=== PATIENT | female | born 1955 | race African-American/Black ===

== ENCOUNTER 2017-10-07 09:36 | Outpatient (CLI) | payer BC | END 2017-10-07 09:37 | disposition home or self-care (01) | LOC: BICMAMMO 09:36 | PROVIDERS: ATTEND Obstetrics & Gynecology | DX: Z12.31 Encounter for screening mammogram for malignant neoplasm of breast (principal) | CPT/HCPCS: 77067; G0202 ==

== ENCOUNTER 2018-10-10 10:22 | Outpatient (CLI) | payer OTHER | END 2018-10-10 10:23 | disposition home or self-care (01) | LOC: BICMAMMO 10:22 | PROVIDERS: ATTEND Obstetrics & Gynecology | DX: Z12.31 Encounter for screening mammogram for malignant neoplasm of breast (principal) | CPT/HCPCS: 77063; 77067 ==

== ENCOUNTER 2019-10-11 13:22 | Outpatient (CLI) | payer OTHER ==
--- NOTE | 2019-10-11 14:23 | MMO ---
Bilateral MAMMO Bilat Screen [facility]. CLINICAL HISTORY: Patient is 64 years old and is seen for screening. The patient has no family history of breast cancer. The patient has no personal history of cancer. VIEWS: The views performed were: bilateral craniocaudal with tomosynthesis and bilateral mediolateral oblique with tomosynthesis. FILMS COMPARED: The present examination has been compared to prior imaging studies performed at [facility] on 10/07/2017 and 10/10/2018, and at [facility] on 09/23/2015 and 09/29/2016. This study has been interpreted with the assistance of computer-aided detection. MAMMOGRAM FINDINGS: There are scattered fibroglandular densities. There are no suspicious masses, suspicious calcifications, or new areas of architectural distortion. IMPRESSION: THERE IS NO MAMMOGRAPHIC EVIDENCE OF MALIGNANCY. A ROUTINE FOLLOW-UP MAMMOGRAM IN 1 YEAR IS RECOMMENDED. THE RESULTS OF THIS EXAM WERE SENT TO THE PATIENT. ACR BI-RADS Category 1 - Negative MAMMOGRAPHY NOTE: 1. A negative mammogram report should not delay a biopsy if a dominant of clinically suspicious mass is present. 2. Approximately 10% to 15% of breast cancers are not detected by mammography. 3. Adenosis and dense breasts may obscure an underlying neoplasm. Reported by: KRYSTIN MERCER MD Electonically Signed: [id number]
== END 2019-10-11 13:23 | disposition home or self-care (01) ==
LOC: BICMAMMO 13:22
PROVIDERS: ATTEND Obstetrics & Gynecology
DX: Z12.31 Encounter for screening mammogram for malignant neoplasm of breast (principal)
CPT/HCPCS: 77063; 77067

== ENCOUNTER 2019-10-31 14:56 | Inpatient (IN) | payer OTHER ==
[~2019-10-31 14:56] MED LIST: Iopamidol-370 76% 500 ML 1 ML ONE
[2019-10-31 15:57] LABS: #Eosinphils 0.2 thou/uL (0.0-0.7); #Monocytes 0.5 thou/uL (0.11-0.59); #Neutrophils 2.5 thou/uL (1.40-6.50); %Basophils 0.7 % (0.0-1.0); %Eosinophils 3.8 % (0.0-10.0); %Lymphocytes 38.4 % (21.0-51.0); %Monocytes 9.7 % (0.0-10.0); %Neutrophils 47.4 % (42.0-75.0); Hemoglobin 13.4 g/dL (12.0-16.0); Mean Corpuscular HGB CONC 34.8 g/dL (32.0-36.0); Mean Corpuscular Hemoglobin 32.1 pg (27.0-31.0); Mean Corpuscular Volume 92.4 fL (78.0-98.0); Mean Platelet Volume 6.9 fL (7.4-10.4); Platelet Count 248 thou/uL (130-400); Red Blood Cell (RBC) Count 4.16 mill/uL (4.20-5.40); White Blood Cell (WBC) Count 5.3 thou/uL (4.8-10.8)
[2019-10-31 16:01] LABS: PTT 32.6 SEC (22.9-36.1)
[2019-10-31 16:23] LABS: ALT (SGPT) 16 U/L (8-55); AST (SGOT) 18 U/L (5-34); Albumin 4.1 g/dL (3.4-4.8); Alkaline Phosphatase 80 U/L (40-110); Anion Gap 10 mmol/L (10-20); BUN (Urea Nitrogen) 11 mg/dL (9.8-20.1); Bilirubin, Total 0.4 mg/dL (0.2-1.2); CK (CPK) 89 U/L (29-168); Calc. Creatinine Clearance 0 mL/min (70-130); Calcium 9.2 mg/dL (7.8-10.44); Carbon Dioxide 23 mmol/L (23-31); Chloride 108 mmol/L (98-107); Estimated GFR-MDRD 85; Globulin 3.4 g/dL (2.4-3.5); Glucose 103 mg/dL (80-115); Lipase 14 U/L (8-78); Potassium 3.8 mmol/L (3.5-5.1); Protein, Total 7.5 g/dL (6.0-8.3); Sodium 137 mmol/L (136-145)
--- NOTE | 2019-10-31 16:36 | ULT ---
EXAM: Right lower extremity venous ultrasound HISTORY: Right lower extremity pain and edema COMPARISON: None TECHNIQUE: Multiplanar grayscale and color Doppler images were obtained in a right lower extremity ve nous ultrasound. Spectral analysis of the Doppler waveforms were performed. FINDINGS: There is nonocclusive thrombus in the popliteal vein. The common femoral vein, profunda fem oral vein, and superficial femoral vein are normal in appearance without visible thrombus. These vessels demonstrate normal compression and flow. The posterior tibial vein and greater saphenous vein are patent without evidence of thrombus. IMPRESSION: Nonocclusive popliteal venous thrombus.
--- NOTE | 2019-10-31 17:20 | CT ---
EXAM: CTA Angio Chest W WO Con PROVIDED CLINICAL HISTORY: Deep venous thrombosis, elevated d-dimer, back pain COMPARISON: None FINDINGS: There are filling defects present within the medial basilar branch of the right lower lobe pulmonary artery, compatible with pulmonary emboli. No additional filling defects are evident within the pulmonary arterial system. The heart, pericardium and great vessels demonstrate an otherwise unremark able CT angiographic appearance. The lungs are free of significant opacity. There is no pleural fluid or pneumothorax apparent. The airway appears patent and of normal caliber. There is no evidence for thoracic lymph node enlargement. The visualized portions of the upper abdomen and straight no significant abnormality. The osseous structures demonstrate no concerning lytic or blastic lesions. IMPRESSION: Positive for right lower lobe pulmonary emboli.
[2019-10-31] MEDS ORDERED: Acetaminophen 325 MG TAB PO PRN (17:42)
[2019-10-31] MEDS ORDERED: Enoxaparin Sodium 80 MG/0.8 ML SYRINGE ONE (17:44)
--- NOTE | 2019-10-31 18:19 | PDOC.EVN ---
Event Note - Event Note Event Note: [id number] HP
[2019-10-31 20:08] LABS: Troponin I 0.019 ng/mL (< 0.028)
--- NOTE | 2019-10-31 22:11 | HP ---
CHIEF COMPLAINT: Right leg pain and abnormal labs. HISTORY OF PRESENT ILLNESS: Ms. Webb is a 64-year-old female with past medical history of hyperlipidemia, was sent to the emergency room by her PCP for elevated D-dimer. The patient went to her primary care physician for right leg pain, lab work was done, showed elevated D-dimer. Also, the patient has been having chest pain, especially with deep inspiration for the last 3 weeks. She thought that she had a pulled muscle. Workup in the emergency room including imaging studies, the patient was found to have nonocclusive popliteal vein thrombosis. CT angiogram of the chest showed positive for right lower lobe pulmonary emboli. The patient was started on Lovenox. The patient has been admitted to the hospital for further management. PAST MEDICAL HISTORY: Hyperlipidemia. PAST SURGICAL HISTORY: 1. Hysterectomy. 2. x2. HOME MEDICATIONS: Please see home medication reconciliation form for updated medications. FAMILY HISTORY: Reviewed and noncontributory. ALLERGIES: ALLERGIC TO SULFA. REVIEW OF SYSTEMS: Review of 14 systems negative except what is mentioned in history of present illness. PHYSICAL EXAMINATION: GENERAL: The patient is awake, alert, in mild distress. VITAL SIGNS: Blood pressure 160/70, respiratory rate is 22, oxygen saturation 98%, pulse is 116. HEAD AND NECK: Normocephalic, atraumatic. NECK: Supple. No JVD. CHEST: Fair bilateral air entry. HEART: S1, S2. Regular. ABDOMEN: Soft, nontender. Bowel sounds present. NEUROLOGIC: Awake, alert, and oriented x3. PSYCHIATRIC: Normal mood. EXTREMITIES: No clubbing, no cyanosis. GENITOURINARY: No suprapubic tenderness. No flank tenderness. MUSCULOSKELETAL: No back tenderness. No joint deformity or tenderness. LABORATORY DATA: Hemoglobin 13.4, platelets 248. CTA of the chest as mentioned above in history of present illness. Venous Doppler of right lower extremity as mentioned above in history of present illness. ASSESSMENT AND PLAN: 1. Acute pulmonary embolism. 2. Acute deep venous thrombosis. 3. Tachycardia. 4. Hyperlipidemia. PLAN: 1. Admit. 2. Continue with anticoagulation. The patient was started on Lovenox 1 mg/kg q.12 hours. 3. 2D echo. 4. Consult Pulmonary in a.m. for evaluation and further recommendations. 5. Reconcile home medications. 6. DVT prophylaxis. The patient is on anticoagulants. 7. Expected length of stay, 2 midnights. Job ID: [id number]
[2019-10-31 22:21] LABS: Troponin I 0.018 ng/mL (< 0.028)
[2019-10-31] MEDS: Famotidine 20 MG TAB PO SCH (22:40)
[2019-10-31] MEDS ORDERED: Famotidine 20 MG TAB ONE (23:03)
[2019-11-01 03:49] LABS: Hemoglobin 12.8 g/dL (12.0-16.0); Platelet Count 247 thou/uL (130-400)
[2019-11-01] MEDS ORDERED: Loperamide HCl 2 MG CAP PO PRN (07:42)
[2019-11-01] MEDS ORDERED: Senokot S 8.6-50 MG TAB PO PRN (07:42)
[2019-11-01] MEDS ORDERED: Ondansetron PF 4 MG/2 ML Vial IVP PRN (07:42)
[2019-11-01] MEDS ORDERED: hydrALAZINE 20 MG/ML VIAL SLOW IVP PRN (07:42)
[2019-11-01] MEDS ORDERED: Sodium Chloride 0.65% Nasal 44 ML BOT EA NARE PRN (07:42)
[2019-11-01] MEDS ORDERED: Loratadine 10 MG TAB PO PRN (07:42)
[2019-11-01] MEDS ORDERED: Bisacodyl 10 MG SUPP PR PRN (07:42)
[2019-11-01] MEDS ORDERED: Zolpidem Tartrate 5 MG TAB PO PRN (07:42)
[2019-11-01] MEDS ORDERED: HYDROcodone/Acetaminophen 5/325 mg Tablet PO PRN (07:42)
[2019-11-01] MEDS ORDERED: Artificial Tears 18 DROP/0.9 ML EA EYE PRN (07:42)
[2019-11-01] MEDS ORDERED: Calcium Carbonate 500 MG ChewTAB PO PRN (07:42)
[2019-11-01] MEDS ORDERED: Diabetic Tussin 200 MG/10 ML UDCUP PO PRN (07:42)
[2019-11-01] MEDS ORDERED: Ondansetron ODT 4 MG TAB PO PRN (07:42)
[2019-11-01] MEDS: Famotidine 20 MG TAB PO SCH ×2 (09:00→21:09)
[2019-11-01] MEDS ORDERED: Enoxaparin Sodium 80 MG/0.8 ML SYRINGE SC SCH (09:00)
[2019-11-01] MEDS ORDERED: Enoxaparin Sodium 80 MG/0.8 ML SYRINGE ONE (09:25)
[2019-11-01] MEDS ORDERED: Famotidine 20 MG TAB ONE (09:25)
--- NOTE | 2019-11-01 12:28 | PDOC.HOSPP ---
- Subjective Encounter Date: 11/01/19 Encounter Time: 10:45 Subjective: Patient seen and examined. No new complaints. No overnight events - Objective Result Diagrams: 11/01/19 03:21 10/31/19 15:49 Radiology Reviewed by me: Yes EKG Reviewed by me: Yes Hospitalist ROS - Review of Systems Eyes: denies: pain, vision change, conjunctivae inflammation, eyelid inflammation, redness, other ENT: denies: ear pain, ear discharge, nose pain, nose discharge, nose congestion , mouth pain, mouth swelling, throat pain, throat swelling, other Respiratory: denies: cough, dry, shortness of breath, hemoptysis, SOB with excertion, pleuritic pain, sputum, wheezing, other Cardiovascular: denies: chest pain, palpitations, orthopnea, paroxysmal noc. dyspnea, edema, light headedness, other Gastrointestinal: denies: nausea, vomiting, abdominal pain, diarrhea, constipation, melena, hematochezia, other Genitourinary: denies: dysuria, frequency, incontinence, hematuria, retention, other Musculoskeletal: denies: neck pain, shoulder pain, arm pain, back pain, hand pain, leg pain, foot pain, other - Medication Medications: Active Medications Generic Name Dose Route Start Last Admin Trade Name Freq PRN Reason Stop Dose Admin Enoxaparin Sodium 80 mg 11/01/19 09:00 11/01/19 09:29 Lovenox SC 80 mg 0900,2100 LUIS MIGUEL Administration Famotidine 20 mg 10/31/19 21:00 11/01/19 09:00 Pepcid PO 20 mg BID LUIS MIGUEL Administration - Exam General Appearance: NAD, awake alert Eye: PERRL, anicteric sclera ENT: normocephalic atraumatic, no oropharyngeal lesions Neck: supple, symmetric, no JVD, no thyromegaly Heart: RRR, no murmur, no gallops, no rubs Respiratory: CTAB, no wheezes, no rales, no ronchi Gastrointestinal: soft, non-tender, non-distended, normal bowel sounds Extremities: no cyanosis, no clubbing, no edema Skin: normal turgor, no lesions, no rashes Neurological: no focal deficits Musculoskeletal: normal tone, normal strength Psychiatric: normal affect, normal behavior, A&O x 3 Hosp A/P (1) Pulmonary embolism Code(s): I26.99 - OTHER PULMONARY EMBOLISM WITHOUT ACUTE COR PULMONALE Status : Acute Qualifiers: Chronicity: acute Acute cor pulmonale presence: without acute cor pulmonale (2) DVT (deep venous thrombosis) Code(s): I82.409 - ACUTE EMBOLISM AND THOMBOS UNSP DEEP VN UNSP LOWER EXTREMITY Status: Acute Qualifiers: DVT location: lower extremity Affected thrombotic vein of extremity: popliteal Chronicity: acute Laterality: right Qualified Code(s): I82.431 - Acute embolism and thrombosis of right popliteal vein (3) Dyslipidemia Code(s): E78.5 - HYPERLIPIDEMIA, UNSPECIFIED Status: Chronic - Plan old records reviewed/req, plan discussed w/ family 11/01/19 continue lovenox discussed different treatment option and their advantage and disadvantages including elliquis, xarelto, and warfarin, pt will decide soon medication reviewed and continue to provide symptomatic treatment repeat labs and check hypercoagulable study tomorrow pt is advised to get age appropriate cancer screening after discharge
[2019-11-01 13:19] VITALS: BMI 28.3
[2019-11-01] MEDS: Apixaban 5 MG TAB PO SCH (21:09)
--- NOTE | 2019-11-02 01:55 | CON ---
DATE OF CONSULTATION: 11/01/2019 SERVICE: Pulmonary Medicine. REASON FOR CONSULT: PE. HISTORY OF PRESENT ILLNESS: The patient is a 64-year-old female with past medical history significant for essentially nothing. She recently went to [place] and back on a car trip. Shortly thereafter, she was little bit more active, broiling some cookies and other things. She pulled a muscle in the right side. It pained her for a day or two and it started getting better. Then, she started noticing that she had increasing pain in her leg. She had some swelling and that is actually what brought her to the emergency department. An ultrasound of the leg confirmed a DVT, and a CT PE protocol was performed because of this chest discomfort. It was not sharp, or respirophasic. As such, I think these two things are true-true and unrelated. That being said, there was a very small pulmonary embolism in the right lower lobe. She denied any shortness of breath, cough, chest discomfort, nausea, or vomiting otherwise. Since she has been in the hospital, there has been not much interval change to her condition. She has never required any oxygen. It does not appear that she has had any right ventricular heart strain. PAST MEDICAL HISTORY: 1. History of DVT/pulmonary embolism. 2. Dyslipidemia. PAST SURGICAL HISTORY: 1. Hysterectomy. 2. section x2. FAMILY HISTORY: Noncontributory. SOCIAL HISTORY: Negative for alcohol, tobacco, or illicit drug use. She has no exposure to chemicals, dust, asbestos, or tuberculosis. ALLERGIES: SULFA. MEDICATIONS: List of her inpatient medications was reviewed. I have discontinued Lovenox, and put her on Eliquis. REVIEW OF SYSTEMS: General, head, ears, eyes, nose, throat, cardiovascular, respiratory, GI, , musculoskeletal, neurologic, and skin is negative except as mentioned is the HPI. PHYSICAL EXAMINATION: VITAL SIGNS: Afebrile, pulse 74, respirations 18, and saturation 98%, currently on room air. GENERAL: The patient is awake and alert, in no apparent distress. LUNGS: Wonderful air entry with no prolonged expiratory phase, wheezing, rhonchi, or crackles. HEART: Normal rate, regular. ABDOMEN: Soft, nontender, nondistended. Bowel sounds are positive. MUSCULOSKELETAL: No cyanosis or clubbing. No pitting in the bilateral lower extremities. NEUROLOGIC: Grossly nonfocal. LABORATORY DATA: WBC 5.3, hemoglobin 12.8, and platelets 247,000. INR 1.0. Basic metabolic profile, liver function studies, BNP, troponin x3, INR, and CBC are all unremarkable. IMAGING DATA: 1. Ultrasound of the leg demonstrates DVT. 2. CTA of the chest demonstrates a very tiny pulmonary embolism in the right lower lobe. Otherwise, there is no significant parenchymal disease appreciated. I do not appreciate any small pulmonary nodules. ASSESSMENT: 1. Acute pulmonary embolism, small. 2. Deep venous thrombosis, provoked by recent travel. DISCUSSION AND PLAN: I discussed the risks versus benefits of pursuing therapy or not. She chose to pursue therapy. I talked about the risks and benefits of direct oral anticoagulant versus Coumadin. She has opted for the direct oral anticoagulant. She appreciates that any type of significant bleeding coming from an area where she cannot put her finger on it to stop the bleeding, constitutes an emergency department and she should present immediately to the emergency department. We will verify through Case Management that the patient's insurance has Eliquis on their formulary. Provided they do, she can be transitioned out of the hospital first thing in the morning. Eliquis needs to be given at 10 mg twice daily for a week, followed by 5 mg twice daily thereafter. She is to be treated for no less than 6 months. No further Pulmonary opinion is required, and I will sign off. Please call with additional questions or concerns through time. 70 minutes have been devoted to this patient in various activities. I personally reviewed all imaging studies and laboratory data noted within this document. For fifty percent of this time, I was interacting with the patient at the bedside or coordinating care with the care team. For the remainder of the time I was immediately available to the patient in the hospital unit. Job ID: [id number] [facility]
[2019-11-02] MEDS: Apixaban 5 MG TAB PO SCH (08:11)
[2019-11-02] MEDS: Famotidine 20 MG TAB PO SCH (10:54)
[2019-11-02 11:30] VITALS: BP 115/71; TEMP 98.3
--- NOTE | 2019-11-02 11:49 | DIS ---
DATE OF ADMISSION: 10/31/2019 DATE OF DISCHARGE: 11/02/2019 PRIMARY CARE PHYSICIAN: [facility] Call admission. DISCHARGE DISPOSITION: Home. PRIMARY DISCHARGE DIAGNOSES: 1. Right-sided subsegmental pulmonary embolism. 2. Right popliteal vein deep vein thrombosis, nonocclusive. SECONDARY DISCHARGE DIAGNOSIS: Dyslipidemia. PRIMARY PROCEDURE/OPERATION: None. RADIOLOGICAL INVESTIGATION: CT angiography reported as right lower lobe pulmonary emboli. Vascular ultrasound positive for nonocclusive right popliteal vein thrombosis. Echocardiography showed EF 60% to 65% with diastolic dysfunction. SIGNIFICANT LABORATORY DATA: WBC 5.3, hemoglobin 12.8, platelet 247. INR 1.0. Creatinine 0.82. Electrolytes are normal. LFT normal. Cardiac enzyme negative x3. BNP normal. DISCHARGE MEDICATIONS: 1. The patient is advised to consider Premarin cream after consultation with her ESL PROFESSOR. 2. Crestor 10 mg p.o. daily. 3. Tizanidine 2 mg t.i.d. p.r.n. 4. Eliquis 10 mg p.o. b.i.d. until November 07, 2019, and then 5 mg p.o. b.i.d. CONTRAINDICATION: None. CODE STATUS: Full code. INPATIENT ICT PROJECT MANAGER: Dr. Simons, sound editor. TEST RESULTS PENDING ON DISCHARGE: None. ALLERGIES: SULFA DRUGS. DISCHARGE PLAN: Posthospital, the patient will follow up with primary care physician as well as her ESL PROFESSOR doctor. HOSPITAL COURSE: A 64-year-old female with past medical history of dyslipidemia as well as she is on hormonal therapy, who was admitted by Dr. Braxton. Please see his H and P for further details. The patient was having mild shortness of breath and right leg pain, and the patient was having elevated D-dimer and that is why the patient had further investigation in the emergency room, and the patient was found with nonocclusive popliteal vein thrombosis and CT angiography showed right lower lobe pulmonary embolism. The patient was hemodynamically stable. She was treated with Lovenox while in the hospital. Pulmonary was consulted. We discussed with the patient about treatment option including warfarin, Eliquis and Xarelto, and the patient selected Eliquis therapy. Risk and benefit of therapy discussed. We have advised and patient education given about bleeding risk. In that case, she needs to come to emergency room. We have also discussed with the patient about discussion with ESL PROFESSOR doctor to consider estrogen therapy, which may be risk factor for a pulmonary embolism. The patient is given Eliquis 10 mg b.i.d. for one week and then 5 mg b.i.d. for at least six months. The patient will follow up with primary care physician. The patient is okay with cost of medication with her insurance guevara. The patient is seen and examined at bedside today. PHYSICAL EXAMINATION: VITAL SIGNS: Currently, temperature 98.3, pulse 57, respiratory rate 15, saturation 98% on room air, blood pressure 115/71, weight 164 pounds. GENERAL: The patient is alert and oriented. No acute Distress. HEENT: Head, normocephalic and atraumatic. Eyes, pupils are round and reactive to light. Extraocular muscle intact. ENT, oropharynx within normal limits. Moist mucous membranes. No oral lesion. No pharyngeal erythema. No exudate. NECK: Supple. No JVD. No thyromegaly. No carotid bruit. LUNGS: Clear to auscultation without any rhonchi or rales. CARDIAC: S1 and S2, regular without any murmur. No gallop. No rub. ABDOMEN: Soft and benign without any tenderness. EXTREMITIES: No edema. NEUROLOGIC: Nonfocal examination. Job ID: [id number]
== END 2019-11-02 12:25 | disposition home or self-care (01) | DRG 299 ==
LOC: ERS 14:56 → ERHOLD 18:23 → 2SE 11-01 12:54
PROVIDERS: ADMIT Internal Medicine; ATTEND Internal Medicine
DX: I82.431 Acute embolism and thrombosis of right popliteal vein (principal); I26.99 Other pulmonary embolism without acute cor pulmonale; E78.00 Pure hypercholesterolemia, unspecified; E78.5 Hyperlipidemia, unspecified; Z90.710 Acquired absence of both cervix and uterus; Z88.2 Allergy status to sulfonamides; Z79.899 Other long term (current) drug therapy
CPT/HCPCS: 36415; 71275; 80053; 82274; 82550; 83690; 83880; 84484; 85014; 85018; 85025; 85049; 85610; 85730; 93005; 93306; 96360; 96361; 96372; J1650; Q9967

== ENCOUNTER 2020-09-11 13:46 | Outpatient (CLI) | payer BC ==
--- NOTE | 2020-09-11 14:49 | ULT ---
US Carotid Doppler STANDARD History: Other specified symptoms involving the circulatory respiratory system Comparison: None. Findings: Real-time grayscale, color and spectral analysis of the extracranial carotid and vertebral arteries was performed. Mildly elevated peak systolic velocity within the right internal carotid artery of of 127 cm/s. No el evated peak systolic velocity within the left internal carotid artery. Antegrade flow both vertebral arteries. Impression: Moderate 50-69% stenosis distal right internal carotid artery.
== END 2020-09-11 13:47 | disposition home or self-care (01) ==
LOC: BICULT 13:46
PROVIDERS: ATTEND Family Medicine
DX: R09.89 Other specified symptoms and signs involving the circulatory and respiratory systems (principal); I65.21 Occlusion and stenosis of right carotid artery
CPT/HCPCS: 93880

== ENCOUNTER 2020-10-14 08:53 | Outpatient (CLI) | payer BC ==
--- NOTE | 2020-10-14 09:30 | MMO ---
Bilateral MAMMO Bilat Screen [facility]. CLINICAL HISTORY: Patient is 65 years old and is seen for screening. The patient has no family history of breast cancer. The patient has no personal history of cancer. The patient has a history of OTHER - benign - UNSURE WHICH BREAST AND PROCEDURE. VIEWS: The views performed were: bilateral craniocaudal with tomosynthesis and bilateral mediolateral oblique with tomosynthesis. FILMS COMPARED: The present examination has been compared to prior imaging studies performed at [facility] on 10/07/2017, 10/10/2018 and 10/11/2019, and at [facility] on 09/29/2016. This study has been interpreted with the assistance of computer-aided detection. MAMMOGRAM FINDINGS: There are scattered fibroglandular densities. There are no suspicious masses, suspicious calcifications, or new areas of architectural distortion. IMPRESSION: THERE IS NO MAMMOGRAPHIC EVIDENCE OF MALIGNANCY. A ROUTINE FOLLOW-UP MAMMOGRAM IN 1 YEAR IS RECOMMENDED. THE RESULTS OF THIS EXAM WERE SENT TO THE PATIENT. ACR BI-RADS Category 1 - Negative MAMMOGRAPHY NOTE: 1. A negative mammogram report should not delay a biopsy if a dominant of clinically suspicious mass is present. 2. Approximately 10% to 15% of breast cancers are not detected by mammography. 3. Adenosis and dense breasts may obscure an underlying neoplasm. Reported by: NAWAF TYSON MD Electonically Signed: [id number]
== END 2020-10-14 08:54 | disposition home or self-care (01) ==
LOC: BICMAMMO 08:53
PROVIDERS: ATTEND Obstetrics & Gynecology
DX: Z12.31 Encounter for screening mammogram for malignant neoplasm of breast (principal)
CPT/HCPCS: 77063; 77067

== ENCOUNTER 2021-10-14 07:57 | Outpatient (CLI) | payer BC | END 2021-10-14 07:58 | disposition home or self-care (01) | LOC: BICMAMMO 07:57 | PROVIDERS: ATTEND Family Medicine | DX: Z12.31 Encounter for screening mammogram for malignant neoplasm of breast (principal); M80.00XA Age-related osteoporosis with current pathological fracture, unspecified site, initial encounter for fracture | CPT/HCPCS: 77063; 77067; 77080 ==

== ENCOUNTER 2021-12-11 13:15 | Outpatient (CLI) | payer BC | END 2021-12-11 13:16 | disposition home or self-care (01) | LOC: BICRAD 13:15 | PROVIDERS: ATTEND Family Medicine | DX: M25.551 Pain in right hip (principal) ==

== ENCOUNTER 2022-10-15 07:53 | Outpatient (CLI) | payer MEDICARE | END 2022-10-15 07:54 | disposition home or self-care (01) | LOC: BICMAMMO 07:53 | PROVIDERS: ATTEND Obstetrics & Gynecology | DX: Z12.31 Encounter for screening mammogram for malignant neoplasm of breast (principal) | CPT/HCPCS: 77063; 77067 ==

== ENCOUNTER 2023-10-18 07:58 | Outpatient (CLI) | payer MEDICARE | END 2023-10-18 07:59 | disposition home or self-care (01) | LOC: BICMAMMO 07:58 | PROVIDERS: ATTEND Obstetrics & Gynecology | DX: Z12.31 Encounter for screening mammogram for malignant neoplasm of breast (principal) | CPT/HCPCS: 77063; 77067 ==

== ENCOUNTER 2023-12-20 11:05 | Outpatient (CLI) | payer MEDICARE | END 2023-12-20 11:06 | disposition home or self-care (01) | LOC: SCSRAD 11:05 | PROVIDERS: ATTEND Family Medicine | DX: R10.2 Pelvic and perineal pain (principal); M16.0 Bilateral primary osteoarthritis of hip | CPT/HCPCS: 36415; 72170; 80053; 85025; 86140 ==

== ENCOUNTER 2024-12-02 11:46 | Emergency (ER) | payer BC, MEDICARE ==
[2024-12-02 12:05] LABS: #Basophils 0.05 10x3/uL (0.0-0.2); %Eosinophils 2.5 % (0.0-10.0); %Lymphocytes 54.8 % (21.0-51.0); %Neutrophils 33.5 % (42.0-75.0); Hematocrit 40.5 % (36.0-47.0); Hemoglobin 13.1 g/dL (12.0-16.0); Mean Corpuscular HGB CONC 32.3 g/dL (32.0-36.0); Mean Corpuscular Hemoglobin 29.4 pg (27.0-31.0); Mean Corpuscular Volume 90.8 fL (78.0-98.0); Mean Platelet Volume 9.1 fL (7.4-10.4); Platelet Count 308 10x3/uL (130-400); RBC Distribution Width 12.6 % (11.5-14.5); Red Blood Cell (RBC) Count 4.46 mill/uL (4.20-5.40)
[2024-12-02] MEDS ORDERED: Ondansetron PF 4 MG/2 ML Vial ONE (12:06)
[2024-12-02] MEDS ORDERED: niCARdipine 25 MG/10 ML SDV ONE (12:12)
[2024-12-02 12:18] LABS: ALT (SGPT) 14 U/L (Less than 34); AST (SGOT) 27 U/L (11-34); Albumin 4.3 g/dL (3.1-4.5); Alkaline Phosphatase 68 U/L (40-110); Anion Gap 16 mmol/L (10-20); BUN (Urea Nitrogen) 14 mg/dL (9.8-20.1); Bilirubin, Total 0.6 mg/dL (0.3-1.2); Calc. Creatinine Clearance 0 mL/min (70-130); Carbon Dioxide 20 mmol/L (23-31); Chloride 107 mmol/L (98-107); Estimated GFR 60; Globulin 3.9 g/dL (2.4-3.5); Glucose 124 mg/dL (80-115); Potassium 3.7 mmol/L (3.5-5.1); Protein, Total 8.2 g/dL (5.8-8.1); Sodium 139 mmol/L (136-145)
[2024-12-02 12:22] LABS: Troponin I Less than 0.010 ng/mL (< 0.028)
[2024-12-02] MEDS ORDERED: Tenecteplase 50 MG ONE (12:35)
[2024-12-02 12:40] LABS: PTT 31.5 sec (22.9-36.1); Prothrombin Time 13.2 sec (12.0-14.7)
[2024-12-02] MEDS ORDERED: Iopamidol-370 76% 500 ML MDV (1 ML CHARGE) ONE (13:55)
== END 2024-12-02 13:49 | disposition short-term general hospital (02) ==
LOC: ERS 11:46
DX: I67.82 Cerebral ischemia (principal); R47.01 Aphasia; R53.1 Weakness; I65.21 Occlusion and stenosis of right carotid artery; E78.00 Pure hypercholesterolemia, unspecified; Z79.899 Other long term (current) drug therapy
CPT/HCPCS: 36416; 70450; 70496; 70498; 71045; 80053; 84484; 85025; 85610; 85730; 93005; 94760; 96374; 96375; J2405; J3101; Q9967